=== PATIENT | female | born 1945 | race Caucasian/White ===

== ENCOUNTER 2017-06-06 21:42 | Inpatient (IN) | payer OTHER ==
[~2017-06-06] VITALS: Ht 165.1 cm; Wt 88.4 kg
[2017-06-06 22:24] LABS: HEMATOCRIT 34.2 % (36.0-46.0); MCH 27.3 PG (29.0-34.0); MCHC 31.9 G/DL (30.0-36.0); MCV 85.7 FL (83-99); MEAN PLAT.VOLUME 9.2 uM^3 (9.5-12.4); PLATELET COUNT 303 K/uL (156-360); RBC DIS.WIDTH-CV 13.7 % (11.8-14.6); RBC DIS.WIDTH-SD 43.1 % (39-53); RED BLOOD COUNT 3.99 M/uL (3.80-5.20); WHITE BLOOD COUNT 9.3 K/uL (4.1-10.2)
[2017-06-06 22:35] LABS: CHLORIDE 109 mEq/L (99-109); POTASSIUM 4.7 mEq/L (3.7-5.4); SODIUM 144 mEq/L (136-147)
[2017-06-06 22:36] LABS: GLUCOSE 131 mg/dL (70-99)
[2017-06-06 22:38] LABS: ANION GAP 10 MEQ/L (2-14)
[2017-06-06 22:40] LABS: GFR ESTIMATE (CALCULATED) 52 mL/min/
[2017-06-06 22:41] LABS: UREA NITROGEN (BUN) 30 mg/dL (9-23)
[2017-06-06 22:49] LABS: TROP-I INTERPRETATION NEGATIVE; TROPONIN-I 0.02 ng/mL (0.0-0.30)
[2017-06-06] MEDS ORDERED: CLARITIN,ALAVAR10 MG PO (22:52)
[2017-06-06] MEDS ORDERED: GLUCOPHAGE500 MG PO (22:53)
[2017-06-06] MEDS ORDERED: LOPRESSOR25 MG PO (22:54)
[2017-06-06] MEDS ORDERED: SINGULAIR10 MG PO (22:55)
[2017-06-06] MEDS ORDERED: ASPIRIN325 MG PO (22:55)
[2017-06-06] MEDS ORDERED: LIPITOR40 MG PO (22:56)
[2017-06-06] MEDS ORDERED: BUSPAR5 MG PO (22:56)
[2017-06-06] MEDS ORDERED: ZESTRIL10 MG PO (22:57)
[2017-06-06] MEDS ORDERED: VITAMIN D2000 UNIT PO (22:57)
[2017-06-06] MEDS ORDERED: FLONASE16 G1 BOTH NARES (22:57)
[2017-06-06] MEDS ORDERED: BREO ELLIPTA I1 EACH IH (22:58)
[2017-06-06] MEDS ORDERED: ZOLOFT50 MG PO (22:59)
[2017-06-06] MEDS ORDERED: NEURONTIN100 MG PO (22:59)
[2017-06-06] MEDS ORDERED: COLACE100 MG PO (23:00)
[2017-06-06] MEDS ORDERED: NITROSTAT0.4 MG SL (23:00)
[2017-06-06] MEDS ORDERED: PROMETHAZINE HC25 M1 PO (23:01)
[2017-06-06] MEDS ORDERED: ONDANSETRON ODT4 MG PO (23:01)
[2017-06-06] MEDS ORDERED: ROBAFEN DM COU118 M1 PO (23:01)
[2017-06-06] MEDS ORDERED: TYLENOL REGULA325 MG PO (23:02)
[2017-06-06] MEDS ORDERED: PERCOCET 5/31 TABLET PO (23:02)
[2017-06-06] MEDS ORDERED: DUONEB 2.5-0.5 M3 ML AEROSOL (23:03)
[2017-06-06] MEDS ORDERED: MILK OF MAGN PO (23:04)
[2017-06-06] MEDS ORDERED: FLEET ENEMA-AD118 ML PR (23:04)
[2017-06-07 00:41] VITALS: BP 136/63
[2017-06-07 03:50] VITALS: BP 138/64
[2017-06-07 06:16] LABS: HDL CHOLESTEROL 38 MG/DL (Desirable>=50); LDL CHOLESTEROL 62 mg/dL (Desirable<100); NON-HDL CHOLESTEROL 81 mg/dL (Desirable<160); TOTAL CHOLESTEROL 119 mg/dL (Desirable<200); TRIGLYCERIDES 96 MG/DL (Normal: <150)
[2017-06-07 06:54] LABS: BASOPHIL COUNT 0.1 K/uL (0-0.1); EOSINOPHIL (%) 7.2 % (0-5); EOSINOPHIL COUNT 0.6 K/uL (0-0.3); HEMATOCRIT 34.4 % (36.0-46.0); IMMATURE GRANULOCYTE (%) 0.6 % (0.0-0.7); IMMATURE GRANULOCYTE COUNT 0.1 K/uL; INSTRUMENT ABS NEUTROPHIL CT 5.4 K/uL; LYMPHOCYTE COUNT 1.7 K/uL (1.0-2.8); MCHC 30.5 G/DL (30.0-36.0); MCV 88.4 FL (83-99); MEAN PLAT.VOLUME 9.8 uM^3 (9.5-12.4); MONOCYTE (%) 6.3 % (3-12); MONOCYTE COUNT 0.5 K/uL (0-0.8); NEUTROPHIL COUNT 5.4 K/uL (1.8-6.4); PLATELET COUNT 308 K/uL (156-360); RBC DIS.WIDTH-CV 13.9 % (11.8-14.6); RBC DIS.WIDTH-SD 44.6 % (39-53); RED BLOOD COUNT 3.89 M/uL (3.80-5.20); WHITE BLOOD COUNT 8.3 K/uL (4.1-10.2)
[2017-06-07 07:04] LABS: ANION GAP 12 MEQ/L (2-14); CHLORIDE 106 MEQ/L (99-109); GFR ESTIMATE (CALCULATED) 58 mL/min/; POTASSIUM 4.7 MEQ/L (3.7-5.4); SODIUM 142 MEQ/L (136-147); UREA NITROGEN (BUN) 27 mg/dL (9-23)
[2017-06-07 07:08] LABS: GLUCOSE 87 mg/dL (70-99); TROP-I INTERPRETATION INDETERMINATE; TROPONIN-I 0.36 ng/mL (0.0-0.30)
[2017-06-07 07:32] LABS: Estimated Average Glucose 140 mg/dL (70-123); HEMOGLOBIN A1c (GLYCOHEMOGLOB) 6.5 % HGB (Below 5.7)
[2017-06-07 09:00] VITALS: BP 186/74
[2017-06-07 10:00] LABS: POINT-OF-CARE METER ID UU14162513
[2017-06-07 11:05] LABS: TROP-I INTERPRETATION INDETERMINATE
[2017-06-07 11:24] VITALS: BP 183/77
[2017-06-07 12:19] LABS: POINT-OF-CARE METER ID UU13113831
[2017-06-07 14:23] LABS: TROP-I INTERPRETATION INDETERMINATE; TROPONIN-I 0.51 ng/mL (0.0-0.30)
[2017-06-07 18:36] LABS: POINT-OF-CARE METER ID UU14162513
[2017-06-07 20:00] VITALS: BP 175/78
[2017-06-07 20:14] LABS: TROP-I INTERPRETATION INDETERMINATE; TROPONIN-I 0.34 ng/mL (0.0-0.30)
[2017-06-07 21:09] LABS: POINT-OF-CARE METER ID UU14162513
[2017-06-08 00:07] VITALS: BP 139/60
[2017-06-08 03:24] LABS: TROP-I INTERPRETATION INDETERMINATE; TROPONIN-I 0.35 ng/mL (0.0-0.30)
[2017-06-08 04:14] VITALS: BP 139/60
[2017-06-08 04:40] LABS: EOSINOPHIL (%) 9.3 % (0-5); EOSINOPHIL COUNT 0.8 K/uL (0-0.3); HEMATOCRIT 34.1 % (36.0-46.0); IMMATURE GRANULOCYTE (%) 0.4 % (0.0-0.7); INSTRUMENT ABS NEUTROPHIL CT 4.8 K/uL; LYMPHOCYTE COUNT 1.8 K/uL (1.0-2.8); MCH 27.1 PG (29.0-34.0); MCV 84.8 FL (83-99); MEAN PLAT.VOLUME 10.1 uM^3 (9.5-12.4); MONOCYTE (%) 7.1 % (3-12); MONOCYTE COUNT 0.6 K/uL (0-0.8); NEUTROPHIL (%) 60.2 % (45-76); NEUTROPHIL COUNT 4.8 K/uL (1.8-6.4); PLATELET COUNT 343 K/uL (156-360); RBC DIS.WIDTH-CV 13.9 % (11.8-14.6); RBC DIS.WIDTH-SD 42.8 % (39-53); RED BLOOD COUNT 4.02 M/uL (3.80-5.20)
[2017-06-08 04:43] LABS: CHLORIDE 108 mEq/L (99-109); POTASSIUM 4.4 mEq/L (3.7-5.4); SODIUM 143 mEq/L (136-147)
[2017-06-08 04:47] LABS: ANION GAP 10 MEQ/L (2-14)
[2017-06-08 04:49] LABS: GFR ESTIMATE (CALCULATED) 58 mL/min/; GLUCOSE 110 mg/dL (70-99)
[2017-06-08 04:54] LABS: UREA NITROGEN (BUN) 18 mg/dL (9-23)
[2017-06-08 08:06] LABS: POINT-OF-CARE METER ID UU14174225
[2017-06-08 08:08] VITALS: BP 172/83
[2017-06-08 15:08] VITALS: BP 135/68
[2017-06-08 17:35] LABS: ADD MIUA? YES; BILIRUBIN NEGATIVE; BLOOD NEGATIVE; COLOR YELLOW ((YELLOW)); GLUCOSE (STRIP) 50; KETONES NEGATIVE; LEUKOCYTES SMALL; NITRITE NEGATIVE; PROTEIN (STRIP) 100; SPECIFIC GRAVITY 1.018 (1.000-1.030)
[2017-06-08 17:59] LABS: BACTERIA 1+ /HPF; EPITHELIAL CELLS 1+ /HPF; MUCUS TRACE /LPF; RED BLOOD CELLS 15-20 /HPF (0-5); UCUL ADDED? YES; WHITE BLOOD CELLS TNTC /HPF (0-5)
[2017-06-08 19:32] VITALS: BP 149/65
[2017-06-08 20:53] LABS: POINT-OF-CARE METER ID UU14174225
[2017-06-09 00:04] VITALS: BP 173/77
[2017-06-09 04:35] VITALS: BP 161/68
[2017-06-09 06:09] LABS: EOSINOPHIL (%) 9.2 % (0-5); EOSINOPHIL COUNT 0.7 K/uL (0-0.3); HEMATOCRIT 34.3 % (36.0-46.0); IMMATURE GRANULOCYTE (%) 0.6 % (0.0-0.7); INSTRUMENT ABS NEUTROPHIL CT 4.5 K/uL; LYMPHOCYTE COUNT 1.4 K/uL (1.0-2.8); MCH 27.7 PG (29.0-34.0); MCHC 32.7 G/DL (30.0-36.0); MCV 84.9 FL (83-99); MEAN PLAT.VOLUME 9.5 uM^3 (9.5-12.4); MONOCYTE (%) 7.4 % (3-12); MONOCYTE COUNT 0.5 K/uL (0-0.8); NEUTROPHIL COUNT 4.5 K/uL (1.8-6.4); PLATELET COUNT 299 K/uL (156-360); RBC DIS.WIDTH-CV 13.8 % (11.8-14.6); RBC DIS.WIDTH-SD 42.7 % (39-53); RED BLOOD COUNT 4.04 M/uL (3.80-5.20); WHITE BLOOD COUNT 7.2 K/uL (4.1-10.2)
[2017-06-09 06:35] LABS: ALKALINE PHOSPHATASE 110 IU/L (3-129); ANION GAP 10 MEQ/L (2-14); CHLORIDE 107 MEQ/L (99-109); GFR ESTIMATE (CALCULATED) 52 mL/min/; GLUCOSE 119 mg/dL (70-99); POTASSIUM 4.3 MEQ/L (3.7-5.4); SAMPLE HEMOLYSIS CHECK 0; SAMPLE ICTERIC CHECK 0; SAMPLE LIPEMIA CHECK 0; SODIUM 143 MEQ/L (136-147); TOTAL BILIRUBIN 0.5 MG/DL (0.0-1.0); UREA NITROGEN (BUN) 21 mg/dL (9-23)
[2017-06-09 08:07] VITALS: BP 160/71
[2017-06-09 12:13] LABS: POINT-OF-CARE METER ID UU14174225
[2017-06-09 16:00] VITALS: BP 135/67
[2017-06-09 17:07] LABS: POINT-OF-CARE METER ID UU13113717
[2017-06-09 19:56] VITALS: BP 145/71
[2017-06-09 20:54] LABS: POINT-OF-CARE METER ID UU14188625
[2017-06-10 00:17] VITALS: BP 175/78
[2017-06-10 09:10] VITALS: BP 144/68
[2017-06-10] MEDS ORDERED: LEVAQUIN750 MG PO (09:33)
[2017-06-10 12:54] LABS: POINT-OF-CARE METER ID UU13113717
== END 2017-06-10 13:38 | DRG 190 ==
LOC: EME → EDBD 21:42 → 5WEST 23:34 → EDOF 23:34 → ENRESERV 23:35 → 5WEST 06-07 00:27 → ENRESERV 06-07 17:13 → CANRESERV 06-07 17:21 → ENRESERV 06-07 17:21 → CANRESERV 06-07 17:22 → ENRESERV 06-07 17:22 → 5SOUTH 06-08 07:59
PROVIDERS: Emergency Medicine; Hospitalist; Internal Medicine; Physician Assistant Medical
DX: J44.0 Chronic obstructive pulmonary disease with (acute) lower respiratory infection (principal); J18.9 Pneumonia, unspecified organism; I21.4 Non-ST elevation (NSTEMI) myocardial infarction; J44.1 Chronic obstructive pulmonary disease with (acute) exacerbation; E87.2 Acidosis; I13.0 Hypertensive heart and chronic kidney disease with heart failure and stage 1 through stage 4 chronic kidney disease, or unspecified chronic kidney disease; I50.32 Chronic diastolic (congestive) heart failure; N18.3 Chronic kidney disease, stage 3 (moderate); E11.22 Type 2 diabetes mellitus with diabetic chronic kidney disease; G62.9 Polyneuropathy, unspecified; E78.2 Mixed hyperlipidemia; I25.10 Atherosclerotic heart disease of native coronary artery without angina pectoris; K21.9 Gastro-esophageal reflux disease without esophagitis; F32.9 Major depressive disorder, single episode, unspecified; E55.9 Vitamin D deficiency, unspecified; F41.1 Generalized anxiety disorder; G89.29 Other chronic pain; M54.5 Low back pain; E66.9 Obesity, unspecified; Z68.33 Body mass index [BMI] 33.0-33.9, adult; I69.351 Hemiplegia and hemiparesis following cerebral infarction affecting right dominant side; Z87.891 Personal history of nicotine dependence; Z79.82 Long term (current) use of aspirin; Z79.84 Long term (current) use of oral hypoglycemic drugs; Z88.0 Allergy status to penicillin; Z87.01 Personal history of pneumonia (recurrent); Z99.3 Dependence on wheelchair; Z82.49 Family history of ischemic heart disease and other diseases of the circulatory system; Z80.9 Family history of malignant neoplasm, unspecified; Z83.3 Family history of diabetes mellitus
CPT/HCPCS: 71020; 71275; 78582; 80048; 80053; 80061; 81003; 82948; 83036; 83605; 84484; 85025; 85027; 85379; 87040; 87070; 87086; 87205; 93005; 93306; 93970; 94010; 94640; 94640 76; 99202; 99281; 99285; A9540; A9567; G0378; J1644; J1650; J1815; J1956; J7030; J7040

== ENCOUNTER 2017-07-08 03:00 | Inpatient (IN) | payer OTHER ==
[~2017-07-08] VITALS: Ht 165.1 cm; Wt 86.9 kg
[~2017-07-08 03:00] MED LIST: ASPIRIN325 MG PO; BREO ELLIPTA I1 EACH IH; BUSPAR5 MG PO; CLARITIN,ALAVAR10 MG PO; COLACE100 MG PO; DUONEB 2.5-0.5 M3 ML AEROSOL; FLEET ENEMA-AD118 ML PR; FLONASE16 G1 BOTH NARES; GLUCOPHAGE500 MG PO; LEVAQUIN750 MG PO; LIPITOR40 MG PO; LOPRESSOR25 MG PO; MILK OF MAGN PO; NEURONTIN100 MG PO; NITROSTAT0.4 MG SL; ONDANSETRON ODT4 MG PO; PERCOCET 5/31 TABLET PO; PROMETHAZINE HC25 M1 PO; ROBAFEN DM COU118 M1 PO; SINGULAIR10 MG PO; TYLENOL REGULA325 MG PO; VITAMIN D2000 UNIT PO; ZESTRIL10 MG PO; ZOLOFT50 MG PO
[2017-07-08 03:31] LABS: HEMATOCRIT 36.2 % (36.0-46.0); IMMATURE GRANULOCYTE (%) 0.3 % (0.0-0.7); INSTRUMENT ABS NEUTROPHIL CT 6.4 K/uL; LYMPHOCYTE COUNT 1.1 K/uL (1.0-2.8); MCH 27.1 PG (29.0-34.0); MCHC 30.9 G/DL (30.0-36.0); MCV 87.7 FL (83-99); MEAN PLAT.VOLUME 9.4 uM^3 (9.5-12.4); MONOCYTE COUNT 0.5 K/uL (0-0.8); NEUTROPHIL (%) 71.7 % (45-76); NEUTROPHIL COUNT 6.4 K/uL (1.8-6.4); PLATELET COUNT 251 K/uL (156-360); RBC DIS.WIDTH-CV 14.5 % (11.8-14.6); RBC DIS.WIDTH-SD 46.3 % (39-53); RED BLOOD COUNT 4.13 M/uL (3.80-5.20)
[2017-07-08 03:37] LABS: PROTHROMBIN TIME 11.4 SEC (10.2-12.9)
[2017-07-08 03:38] LABS: CHLORIDE 107 mEq/L (99-109); POTASSIUM 4.1 mEq/L (3.7-5.4); SODIUM 143 mEq/L (136-147)
[2017-07-08 03:39] LABS: MAGNESIUM 1.5 mg/dL (1.3-2.7)
[2017-07-08 03:40] LABS: GLUCOSE 170 mg/dL (70-99); PTT 28.6 SEC (25-37)
[2017-07-08 03:42] LABS: ANION GAP 11 MEQ/L (2-14)
[2017-07-08 03:43] LABS: ADD MIUA? YES; BILIRUBIN NEGATIVE; BLOOD NEGATIVE; COLOR YELLOW ((YELLOW)); GLUCOSE (STRIP) NEGATIVE; KETONES NEGATIVE; LEUKOCYTES TRACE; NITRITE NEGATIVE; PROTEIN (STRIP) >=500; SPECIFIC GRAVITY 1.017 (1.000-1.030); UROBILINOGEN 0.2 MG/DL (0.2-1.0)
[2017-07-08 03:44] LABS: GFR ESTIMATE (CALCULATED) 58 mL/min/
[2017-07-08 03:45] LABS: UREA NITROGEN (BUN) 13 mg/dL (9-23)
[2017-07-08 03:51] LABS: TROP-I INTERPRETATION POSITIVE; TROPONIN-I 1.21 ng/mL (0.0-0.30)
[2017-07-08] MEDS ORDERED: MACROBID100 MG PO (03:56)
[2017-07-08] MEDS ORDERED: ROBITUSSIN100 MG/5 M PO (03:58)
[2017-07-08] MEDS ORDERED: MUCINEX600 MG PO (03:59)
[2017-07-08 04:05] LABS: AMORPHOUS URATES CRYSTALS 3+; BACTERIA RARE /HPF; CASTS NONE SEEN /LPF; CRYSTALS PRESENT; EPITHELIAL CELLS RARE /HPF; MUCUS NONE SEEN /LPF; RED BLOOD CELLS RARE /HPF (0-5)
[2017-07-08] MEDS ORDERED: LIPITOR40 MG PO (04:05)
[2017-07-08] MEDS ORDERED: ZANTAC150 MG PO (06:08)
[2017-07-08] MEDS ORDERED: FLONASE16 G1 BOTH NARES (06:11)
[2017-07-08 06:17] VITALS: BP 160/88
[2017-07-08 07:21] VITALS: BP 173/76
[2017-07-08 09:58] LABS: POINT-OF-CARE USER ID ENVKC36
[2017-07-08 11:21] LABS: TROP-I INTERPRETATION POSITIVE; TROPONIN-I 1.06 ng/mL (0.0-0.30)
[2017-07-08 11:42] LABS: POINT-OF-CARE METER ID UU14174216; POINT-OF-CARE USER ID ENVKC36
[2017-07-08 11:50] VITALS: BP 174/82
[2017-07-08 15:53] VITALS: BP 168/70
[2017-07-08 16:42] LABS: POINT-OF-CARE METER ID UU13113781; POINT-OF-CARE USER ID ENVKC36
[2017-07-08 18:52] LABS: TROP-I INTERPRETATION INDETERMINATE; TROPONIN-I 0.59 ng/mL (0.0-0.30)
[2017-07-08 19:23] VITALS: BP 170/84
[2017-07-08 21:30] LABS: POINT-OF-CARE METER ID UU13113698
[2017-07-09 00:08] VITALS: BP 148/79
[2017-07-09 06:00] VITALS: BP 132/78
[2017-07-09 08:02] LABS: POINT-OF-CARE METER ID UU13113698; POINT-OF-CARE USER ID NUTSLF44
[2017-07-09 08:48] VITALS: BP 131/87
[2017-07-09 09:08] LABS: HEMATOCRIT 33.7 % (36.0-46.0); MCH 27.1 PG (29.0-34.0); MCHC 31.2 G/DL (30.0-36.0); MCV 86.9 FL (83-99); MEAN PLAT.VOLUME 9.6 uM^3 (9.5-12.4); PLATELET COUNT 244 K/uL (156-360); RBC DIS.WIDTH-CV 14.5 % (11.8-14.6); RBC DIS.WIDTH-SD 45.8 % (39-53); RED BLOOD COUNT 3.88 M/uL (3.80-5.20); WHITE BLOOD COUNT 9.1 K/uL (4.1-10.2)
[2017-07-09] MEDS ORDERED: MACROBID100 MG PO ×2 (10:18→10:35)
[2017-07-09] MEDS ORDERED: ZANTAC150 MG PO (10:21)
[2017-07-09 11:21] LABS: ANION GAP 14 MEQ/L (2-14); CHLORIDE 107 MEQ/L (99-109); GFR ESTIMATE (CALCULATED) > 59 mL/min/; GLUCOSE 129 mg/dL (70-99); POTASSIUM 4.3 MEQ/L (3.7-5.4); SAMPLE HEMOLYSIS CHECK 0; SAMPLE ICTERIC CHECK 0; SAMPLE LIPEMIA CHECK 0; SODIUM 142 MEQ/L (136-147); UREA NITROGEN (BUN) 16 mg/dL (9-23)
[2017-07-09 11:40] VITALS: BP 146/89
[2017-07-09 12:28] LABS: POINT-OF-CARE USER ID NUTSLF44
[2017-07-09 18:20] LABS: POINT-OF-CARE METER ID UU13113675
[2017-07-10 00:11] LABS: POINT-OF-CARE METER ID UU14174216
[2017-07-10 05:42] VITALS: BP 145/80
[2017-07-10 05:53] LABS: EOSINOPHIL (%) 0.6 % (0-5); EOSINOPHIL COUNT 0.1 K/uL (0-0.3); HEMATOCRIT 32.3 % (36.0-46.0); IMMATURE GRANULOCYTE COUNT 0.1 K/uL; INSTRUMENT ABS NEUTROPHIL CT 8.9 K/uL; LYMPHOCYTE COUNT 0.6 K/uL (1.0-2.8); MCH 27.2 PG (29.0-34.0); MCHC 31.3 G/DL (30.0-36.0); MCV 86.8 FL (83-99); MEAN PLAT.VOLUME 9.9 uM^3 (9.5-12.4); MONOCYTE (%) 3.9 % (3-12); MONOCYTE COUNT 0.4 K/uL (0-0.8); NEUTROPHIL (%) 88.2 % (45-76); NEUTROPHIL COUNT 8.9 K/uL (1.8-6.4); PLATELET COUNT 250 K/uL (156-360); RBC DIS.WIDTH-CV 14.7 % (11.8-14.6); RBC DIS.WIDTH-SD 46.8 % (39-53); RED BLOOD COUNT 3.72 M/uL (3.80-5.20); WHITE BLOOD COUNT 10.1 K/uL (4.1-10.2)
[2017-07-10 06:34] LABS: ANION GAP 7 MEQ/L (2-14); CHLORIDE 105 MEQ/L (99-109); GFR ESTIMATE (CALCULATED) 36 mL/min/; POTASSIUM 4.4 MEQ/L (3.7-5.4); SAMPLE HEMOLYSIS CHECK 0; SAMPLE ICTERIC CHECK 0; SAMPLE LIPEMIA CHECK 0; SODIUM 139 MEQ/L (136-147); UREA NITROGEN (BUN) 20 mg/dL (9-23)
[2017-07-10 06:37] LABS: GLUCOSE 218 mg/dL (70-99)
[2017-07-10 07:43] LABS: POINT-OF-CARE METER ID UU13113698; POINT-OF-CARE USER ID ENVKC36
[2017-07-10 08:10] VITALS: BP 186/86
[2017-07-10 11:30] VITALS: BP 165/76
[2017-07-10 11:49] LABS: POINT-OF-CARE METER ID UU13113698; POINT-OF-CARE USER ID ENVKC36
[2017-07-10 16:26] VITALS: BP 148/80
[2017-07-10 16:34] LABS: POINT-OF-CARE METER ID UU13113698; POINT-OF-CARE USER ID ENVKC36
[2017-07-10 21:30] VITALS: BP 165/74
[2017-07-11 00:15] VITALS: BP 139/69
[2017-07-11 04:15] VITALS: BP 133/65
[2017-07-11 05:25] LABS: HEMATOCRIT 29.2 % (36.0-46.0); MCH 27.7 PG (29.0-34.0); MCHC 32.2 G/DL (30.0-36.0); MCV 86.1 FL (83-99); MEAN PLAT.VOLUME 10.1 uM^3 (9.5-12.4); PLATELET COUNT 224 K/uL (156-360); RBC DIS.WIDTH-CV 14.5 % (11.8-14.6); RBC DIS.WIDTH-SD 45.4 % (39-53); RED BLOOD COUNT 3.39 M/uL (3.80-5.20); WHITE BLOOD COUNT 7.9 K/uL (4.1-10.2)
[2017-07-11 05:58] LABS: ALKALINE PHOSPHATASE 81 IU/L (3-129); ANION GAP 9 MEQ/L (2-14); CHLORIDE 109 MEQ/L (99-109); GFR ESTIMATE (CALCULATED) 58 mL/min/; GLUCOSE 179 mg/dL (70-99); POTASSIUM 4.4 MEQ/L (3.7-5.4); SAMPLE HEMOLYSIS CHECK 0; SAMPLE ICTERIC CHECK 0; SAMPLE LIPEMIA CHECK 0; SODIUM 142 MEQ/L (136-147); TOTAL BILIRUBIN 0.3 MG/DL (0.0-1.0); UREA NITROGEN (BUN) 23 mg/dL (9-23)
[2017-07-11 07:24] VITALS: BP 148/69
[2017-07-11 08:01] LABS: POINT-OF-CARE METER ID UU13113698; POINT-OF-CARE USER ID ENVKC36
[2017-07-11 11:23] VITALS: BP 140/62
[2017-07-11 11:59] LABS: POINT-OF-CARE METER ID UU14174216; POINT-OF-CARE USER ID ENVKC36
[2017-07-11 15:01] VITALS: BP 169/72
[2017-07-11 16:37] LABS: POINT-OF-CARE METER ID UU13113698; POINT-OF-CARE USER ID ENVKC36
[2017-07-11 21:30] VITALS: BP 154/74
[2017-07-12] VITALS (7 sets, daily range): BP systolic 140–182; BP diastolic 63–86
[2017-07-12 07:53] LABS: POINT-OF-CARE METER ID UU14174216
[2017-07-12 11:04] LABS: POINT-OF-CARE METER ID UU14174216
[2017-07-12 16:05] LABS: POINT-OF-CARE METER ID UU14174216
[2017-07-12 21:10] LABS: POINT-OF-CARE METER ID UU14174216
[2017-07-13 04:25] VITALS: BP 135/65
[2017-07-13 04:45] LABS: HEMATOCRIT 31.4 % (36.0-46.0); MCHC 31.8 G/DL (30.0-36.0); MCV 84.6 FL (83-99); MEAN PLAT.VOLUME 9.6 uM^3 (9.5-12.4); PLATELET COUNT 266 K/uL (156-360); RBC DIS.WIDTH-CV 14.5 % (11.8-14.6); RBC DIS.WIDTH-SD 44.6 % (39-53); RED BLOOD COUNT 3.71 M/uL (3.80-5.20); WHITE BLOOD COUNT 8.5 K/uL (4.1-10.2)
[2017-07-13 08:00] VITALS: BP 131/62
[2017-07-13 12:11] VITALS: BP 156/84
[2017-07-13 16:29] VITALS: BP 162/74
[2017-07-13 16:33] LABS: POINT-OF-CARE METER ID UU13113698
[2017-07-13 20:26] VITALS: BP 156/89
[2017-07-13 20:56] LABS: POINT-OF-CARE METER ID UU14174216; POINT-OF-CARE USER ID STWHLR41
[2017-07-13 23:14] VITALS: BP 133/84
[2017-07-14 03:36] VITALS: BP 156/67
[2017-07-14 06:24] LABS: ALKALINE PHOSPHATASE 76 IU/L (3-129); ANION GAP 10 MEQ/L (2-14); CHLORIDE 105 MEQ/L (99-109); GFR ESTIMATE (CALCULATED) 58 mL/min/; GLUCOSE 110 mg/dL (70-99); SAMPLE HEMOLYSIS CHECK 0; SAMPLE ICTERIC CHECK 0; SAMPLE LIPEMIA CHECK 0; SODIUM 141 MEQ/L (136-147); UREA NITROGEN (BUN) 24 mg/dL (9-23)
[2017-07-14 06:25] LABS: TOTAL BILIRUBIN 0.4 MG/DL (0.0-1.0)
[2017-07-14 07:31] LABS: METH RESISTANT S AUREUS PCR POSITIVE (NEGATIVE)
[2017-07-14 07:32] VITALS: BP 165/67
[2017-07-14 07:41] LABS: PROBE CHECK PASS
[2017-07-14 07:48] LABS: POINT-OF-CARE METER ID UU14174216
[2017-07-14 11:37] LABS: POINT-OF-CARE METER ID UU14174216
[2017-07-14 11:49] VITALS: BP 138/67
[2017-07-14] MEDS ORDERED: CEFTIN500 MG PO (16:08)
[2017-07-14] MEDS ORDERED: PREDNISONE10 MG PO (16:14)
[2017-07-14] MEDS ORDERED: CLOPIDOGREL75 MG PO (16:19)
[2017-07-14] MEDS ORDERED: ASPIR-LOW81 MG PO (16:19)
[2017-07-14 16:25] LABS: POINT-OF-CARE METER ID UU14174216
[2017-07-14 16:59] VITALS: BP 133/99
[2017-07-14 19:15] VITALS: BP 161/74
[2017-07-14 21:20] LABS: POINT-OF-CARE METER ID UU13113698
[2017-07-14 23:49] VITALS: BP 148/76
== END 2017-07-15 00:44 | DRG 246 ==
LOC: EME → EDBD 03:00 → 4EAST 04:55 → EDOF 04:55 → 4EAST 04:55 → ENRESERV 05:05 → 4EAST 06:01 → ENRESERV 07-11 08:35 → CANRESERV 07-11 08:35 → 4EAST 07-15 00:44
PROVIDERS: Emergency Medicine; Family Medicine; Internal Medicine; Internal Medicine Cardiovascular Disease
DX: I21.4 Non-ST elevation (NSTEMI) myocardial infarction (principal); J44.0 Chronic obstructive pulmonary disease with (acute) lower respiratory infection; J18.9 Pneumonia, unspecified organism; J44.1 Chronic obstructive pulmonary disease with (acute) exacerbation; I13.0 Hypertensive heart and chronic kidney disease with heart failure and stage 1 through stage 4 chronic kidney disease, or unspecified chronic kidney disease; E11.42 Type 2 diabetes mellitus with diabetic polyneuropathy; E11.22 Type 2 diabetes mellitus with diabetic chronic kidney disease; I25.10 Atherosclerotic heart disease of native coronary artery without angina pectoris; E66.9 Obesity, unspecified; K21.9 Gastro-esophageal reflux disease without esophagitis; E78.2 Mixed hyperlipidemia; I50.32 Chronic diastolic (congestive) heart failure; Z87.891 Personal history of nicotine dependence; I69.351 Hemiplegia and hemiparesis following cerebral infarction affecting right dominant side; Z68.31 Body mass index [BMI] 31.0-31.9, adult; I25.5 Ischemic cardiomyopathy; D63.8 Anemia in other chronic diseases classified elsewhere; I25.2 Old myocardial infarction; I44.30 Unspecified atrioventricular block; I74.9 Embolism and thrombosis of unspecified artery; I07.1 Rheumatic tricuspid insufficiency; N39.0 Urinary tract infection, site not specified; N18.3 Chronic kidney disease, stage 3 (moderate); Z87.01 Personal history of pneumonia (recurrent); Z79.82 Long term (current) use of aspirin; I63.9 Cerebral infarction, unspecified; Z82.49 Family history of ischemic heart disease and other diseases of the circulatory system
CPT/HCPCS: 71010; 71020; 71260; 80048; 80053; 81003; 82565; 82948; 83605; 83735; 84484; 84520; 85025; 85027; 85347; 85610; 85730; 87040; 87086; 87641; 90686; 93005; 94640; 94640 76; 94799; 99202; 99281; 99285; C1725; C1769; C1874; C1887; C1894; J0153; J0461; J0583; J0692; J0696; J1100; J1644; J1815; J2250; J2405; J2920; J3010; J7050; J7512; J7644

== ENCOUNTER 2017-09-06 04:38 | Emergency (ER) | payer OTHER ==
[~2017-09-06] VITALS: Ht 165.1 cm; Wt 78.1 kg
[~2017-09-06 04:38] MED LIST changes: +ASPIR-LOW81 MG PO; +AZITHROMYCIN250 MG1 PO; +BACTRIM,SEPT1 TABLET PO; +CEFTIN500 MG PO; +CLOPIDOGREL75 MG PO; +FUROSEMIDE20 MG PO; +MACROBID100 MG PO; +MUCINEX600 MG PO; +PLAVIX75 MG PO; +PREDNISONE10 MG PO; +ROBITUSSIN100 MG/5 M PO; +TESSALON PERLE100 MG PO; +ZANTAC150 MG PO
[2017-09-06] MEDS ORDERED: PREDNISONE20 MG PO (06:42)
[2017-09-06] MEDS ORDERED: ALBUTEROL2.5 MG/3 M IH (06:42)
[2017-09-06 07:17] VITALS: BP 102/70
== END 2017-09-06 07:18 ==
LOC: EME → EDBD 04:38 → EME 04:38
DX: J44.1 Chronic obstructive pulmonary disease with (acute) exacerbation (principal); E11.9 Type 2 diabetes mellitus without complications; I69.351 Hemiplegia and hemiparesis following cerebral infarction affecting right dominant side; K21.9 Gastro-esophageal reflux disease without esophagitis; F32.9 Major depressive disorder, single episode, unspecified; Z79.02 Long term (current) use of antithrombotics/antiplatelets; Z79.84 Long term (current) use of oral hypoglycemic drugs; Z87.891 Personal history of nicotine dependence; Z85.9 Personal history of malignant neoplasm, unspecified; Z88.0 Allergy status to penicillin
CPT/HCPCS: 71010; 93005; 94640; 99281; 99285; J2930

== ENCOUNTER → 2017-10-10 | Outpatient (CLI) | payer OTHER ==
[~2017-10-10] MED LIST changes: +ALBUTEROL2.5 MG/3 M IH; +PREDNISONE20 MG PO
[2017-10-10 09:32] LABS: HEMATOCRIT 35.1 % (36.0-46.0); HEMOGLOBIN 11.5 G/DL (11.9-15.5); MCH 28.1 PG (29.0-34.0); MCHC 32.8 G/DL (30.0-36.0); MCV 85.8 FL (83-99); PLATELET COUNT 288 K/uL (156-360); RBC DIS.WIDTH-CV 14.2 % (11.8-14.6); RBC DIS.WIDTH-SD 43.7 % (39-53); RED BLOOD COUNT 4.09 M/uL (3.80-5.20); WHITE BLOOD COUNT 7.4 K/uL (4.1-10.2)
[2017-10-10 09:44] LABS: PTT 29.2 SEC (25-37)
== END ==
LOC: OPR 08:14 → EDSTATUS 09:00 → OPR 09:00
PROVIDERS: Internal Medicine Pulmonary Disease
PROC: 0BBC3ZX Excision of Right Upper Lung Lobe, Percutaneous Approach, Diagnostic (ICD-10-PCS; principal; 2017-10-10)
PROC: BB24ZZZ Computerized Tomography (CT Scan) of Bilateral Lungs (ICD-10-PCS; principal; 2017-10-10)
DX: C34.11 Malignant neoplasm of upper lobe, right bronchus or lung (principal); J44.9 Chronic obstructive pulmonary disease, unspecified; E11.9 Type 2 diabetes mellitus without complications; I12.9 Hypertensive chronic kidney disease with stage 1 through stage 4 chronic kidney disease, or unspecified chronic kidney disease; N18.9 Chronic kidney disease, unspecified; D64.9 Anemia, unspecified; I25.5 Ischemic cardiomyopathy; Z87.891 Personal history of nicotine dependence; Z79.84 Long term (current) use of oral hypoglycemic drugs; Z79.02 Long term (current) use of antithrombotics/antiplatelets
CPT/HCPCS: 71010; 77012; 82948; 85027; 85610; 85730; 88305; 88341 TC; 88342 TC; J3010

== ENCOUNTER → 2018-01-23 | Outpatient (CLI) | payer OTHER | END | disposition home or self-care (01) | LOC: RAD 11:00 | DX: J90 Pleural effusion, not elsewhere classified (principal); C34.11 Malignant neoplasm of upper lobe, right bronchus or lung | CPT/HCPCS: 71260 ==

== ENCOUNTER → 2018-06-07 | Outpatient (CLI) | payer OTHER | LOC: RAD 09:55 | DX: E04.1 Nontoxic single thyroid nodule (principal) | CPT/HCPCS: 70491 ==